=== PATIENT | male | born 1955 | race Caucasian/White ===

== ENCOUNTER 2018-07-29 07:35 | Day surgery (SDC) | payer OTHER, SELFPAY ==
[2018-07-29] VITALS (8 sets, daily range): BP systolic 111–157; BP diastolic 64–84; PULSE 51–60; RESP 16; TEMP 36.4–36.8; O2SAT 95–100; BMI 44.2
--- NOTE | 2018-07-29 08:58 | PCM.HP.STD ---
Problem List (1) Screening for intestinal cancer Status: Acute History of Present Illness Date of Admission: 07/29/18 The patient is a 63 year old M who presents for screening colonoscopy. He has never had a previous examination. He denies bright red blood per rectum or melena. There is no family history of colon polyps or colon cancer. He denies weight loss. Past Medical History Allergies amoxicillin [Amoxicillin] Allergy (Verified 05/30/14 14:35) Hives dabigatran etexilate mesylate [From Pradaxa] Allergy (Verified 05/30/14 14:35) Hives pravastatin Allergy (Verified 05/30/14 14:35) Hives Home Medications: Ambulatory Orders Medication Instructions Recorded Aspirin [Aspirin EC] 81 mg PO DAILY 07/28/18 Dofetilide [Tikosyn] 250 mcg PO Q12 07/28/18 Smoking Status: Never smoker Tobacco Use: Non-smoker Review of Systems Constitutional: Denies: Anorexia HEENT: Denies: Difficulty Swallowing Cardiovascular: Denies: Chest Pain Respiratory: Denies: Cough Gastrointestinal: Denies: Abdominal Pain Psychiatric: Denies: Anxiety Endocrine: Denies: Change in Body Habitus VTE Information - Inpt Only VTE Present on Admission: No Patient Problems: Active and Suspected Problems Screening for intestinal cancer (Acute) - Physical Exam General: Alert, Oriented x3, Cooperative, No apparent distress HEENT: Atraumatic Oral: Moist Mucosa Neck: Supple Lungs: Clear to auscultation Cardiovascular: Regular rate, Regular Rhythm Abdomen: Bowel Sounds Present, Soft, Non Tender Vital Signs Temp Pulse Resp BP Pulse Ox 98.2 F 56 L 16 150/75 H 99 07/29/18 07:55 07/29/18 07:55 07/29/18 07:55 07/29/18 07:55 07/29/18 07:55 Oxygen Delivery Method Room Air Weight: 335 lb 8.697 oz Body Mass Index (BMI) 44.2 Assessment/Plan All Active Problems Screening for intestinal cancer (Acute) Plan screening colonoscopy with possible biopsy or polypectomy is indicated. He is aware of the technique, benefits, risks, alternatives. We will proceed as noted. He presents via our open access program. Victoriano Yo M.D., F.A.C.S.
--- NOTE | 2018-07-29 09:24 | OP.ENDO_ITS ---
Patient Name: Max Burroughs Procedure Date: 07/29/2018 8:48 AM Date of : 1955 Age: 63 Procedure: Colonoscopy Indications: Screening for colorectal malignant neoplasm Providers: Victoriano Yo MD Referring MD: Victoriano Yo MD Medicines: Midazolam 5 mg IV, Meperidine 100 mg IV Patient Profile: Last Colonoscopy: none. The patient's first colonoscopy is today. Complications: No immediate complications. Procedure: Pre-Anesthesia Assessment: - Prior to the procedure, a History and Physical was performed, and patient medications and allergies were reviewed. The patient's tolerance of previous anesthesia was also reviewed. The risks and benefits of the procedure and the sedation options and risks were discussed with the patient. All questions were answered, and informed consent was obtained. Prior Anticoagulants: The patient has taken no previous anticoagulant or antiplatelet agents. ASA Grade Assessment: II - A patient with mild systemic disease. After reviewing the risks and benefits, the patient was deemed in satisfactory condition to undergo the procedure. After I obtained informed consent, the scope was passed under direct vision. Throughout the procedure, the patient's blood pressure, pulse, and oxygen saturations were monitored continuously. The colonoscope was introduced through the anus and advanced to the cecum, identified by appendiceal orifice and ileocecal valve. The colonoscopy was performed without difficulty. The patient tolerated the procedure well. The quality of the bowel preparation was good. The ileocecal valve was photographed. Moderate Sedation: Moderate (conscious) sedation was personally administered by the endoscopist. The following parameters were monitored: oxygen saturation, heart rate, blood pressure, and response to care. Total physician intraservice time was 15 minutes. Scope In: 9:05:26 AM Scope Withdrawal Time 0 hours 7 minutes 19 seconds Scope Out: 9:19:22 AM Total Procedure Duration Time 0 hours 13 minutes 56 seconds Findings: The perianal and digital rectal examinations were normal. Pertinent negatives include unable to palpate prostate or much of an exam b/o body habitus. Multiple diverticula were found in the sigmoid colon and descending colon. The exam was otherwise without abnormality. Impression: - Diverticulosis in the sigmoid colon and in the descending colon. - The examination was otherwise normal. - No specimens collected. Recommendation: - Discharge patient to home. - Resume previous diet. - Continue present medications. - Repeat colonoscopy in 10 years for screening purposes. Procedure Code(s): --- Professional --- 30296, Colonoscopy, flexible; diagnostic, including collection of specimen(s) by brushing or washing, when performed (separate procedure) 50753, 59, Moderate sedation services provided by the same physician or other qualified health career orientation teacher performing the diagnostic or therapeutic service that the sedation supports, requiring the presence of an independent trained observer to assist in the monitoring of the patient's level of consciousness and physiological status; initial 15 minutes of intraservice time, patient age 5 years or older Diagnosis Code(s): --- Professional --- Z12.11, Encounter for screening for malignant neoplasm of colon K57.30, Diverticulosis of large intestine without perforation or abscess without bleeding CPT copyright 2017 [employer]. All rights reserved. The codes documented in this report are preliminary and upon information technology coordinator review may be revised to meet current compliance requirements. Victoriano Yo MD 07/29/2018 9:24:24 AM This report has been signed electronically. Number of Addenda: 0 Note Initiated On: 07/29/2018 8:48 AM
== END 2018-07-29 09:49 | disposition home or self-care (01) ==
LOC: EN 07:40 → AC 07:42
PROVIDERS: Family Provider Family Medicine; PCP Family Medicine; Referring Provider Surgery; Visit Provider Surgery
PROC: 0DJD8ZZ Inspection of Lower Intestinal Tract, Via Natural or Artificial Opening Endoscopic (ICD-10-PCS; CPT 45378; principal; 2018-07-29 08:55)
DX: Z12.11 Encounter for screening for malignant neoplasm of colon (principal); K57.30 Diverticulosis of large intestine without perforation or abscess without bleeding
CPT/HCPCS: 45378; 99152; 99153; J7120